=== PATIENT | male | born 1960 | race Caucasian/White ===

== ENCOUNTER 2025-02-01 13:46 | Emergency (ER) | payer BC, SELFPAY ==
[2025-02-01 13:47] VITALS: BP 172/110
[2025-02-01 14:13] LABS: Hematocrit 47.7 % (39.0-52.0); Hemoglobin 15.8 g/dL (13.0-18.0); Mean Corp Hgb Conc. 33.1 g/dL (33.0-37.0); Mean Corpuscular Volume 89.7 fL (80.0-94.0); Nucleated Red Blood Cells % 0 % (-); Platelet Count 277 10^3/uL (130-400); Red Cell Dist. Width 13.3 % (11.5-14.5)
[2025-02-01 14:38] LABS: Troponin I < 0.012 ng/ml
[2025-02-01 14:44] LABS: ALT (SGPT) 19 U/L (0-50); AST (SGOT) 20 U/L (17-59); Albumin 4.8 g/dl (3.5-5.0); Alkaline Phosphatase 57 U/L (38-126); Blood Urea Nitrogen 11 mg/dl (9-20); Calcium 9.8 mg/dl (8.4-10.2); Carbon Dioxide 28 mmol/L (22-30); Chloride 105 mmol/L (98-107); Glucose 113 mg/dl (70-99); Potassium 5.1 mmol/L (3.5-5.1); Sodium 140 mmol/L (135-145); Total Protein 7.6 g/dl (6.3-8.2); eGFR > 60.00
--- NOTE | 2025-02-01 15:51 | ED.GENMED ---
History of Present Illness
General
Chief Complaint: Dizziness
Source: patient
Exam Limitations: none
Time Seen by Provider: 02/01/25 15:20
Nursing documentation reviewed up to this point in time: agreed with
History of Present Illness
History of Present Illness:
Patient is a 64-year-old male presents to the ER for evaluation. Patient reports for the past 4 weeks he has felt very tired and not himself but yesterday he felt lightheaded and took his blood pressure and it was elevated 150/100. He went to
urgent care today for evaluation was sent to the ER. He denies any associated trauma headache blurry vision. He denies any room spinning vertigo history. He does describe at times he has felt' that my brain seems to go numb and I feel very
tired.' Symptoms are intermittent and seem to resolve after he gets a lot of sleep.
While at urgent care he was noted to have PVCs on his EKG which is one of the reasons they sent him to the ER. He denies any chest pain denies any shortness of breath no prior medical history however he has no family doctor.
Patient reports he had similar symptoms and was seen here in May 2023 and symptoms were attributed to orthostasis
He does not smoke. He has no cardiac history.
Phy Exam
General Physical Exam
General Presentation: no apparent distress
General age: appears stated age
General Skin: warm and dry
General Habitus: normal
General Mental: alert
General Hydration: appears well hydrated
Cardiovascular Exam
Cardiovascular Exam: regular rate/rhythm, no murmur and normal peripheral pulses
Pulmonary Exam
Pulmonary Exam: lungs clear and no respiratory distress
Gastrointestinal Exam
Gastrointestinal Exam: non tender and soft
Neurological Exam
Neurological Exam: alert and oriented x3
Musculoskeletal Exam
Musculoskeletal Exam: full ROM
Skin Exam
Skin Exam: normal color and warm/dry
Psychiatric Exam
Psychiatric Exam: normal mood/affect
Course
Orders/Labs/Results
Orders:
Orders
02/01/25 13:48
Electrocardiogram (*1) Urgent
Reason for Study: Chest Pain
EKG- Treatment ONCE
02/01/25 14:03
CBC/With Diff [Complete Blood Count/With Diff] Urgent
Comprehensive Metabolic Panel Urgent
TSH Reflex To Free T4 Urgent
Comment: ADDON
Troponin I Urgent
02/01/25 16:05
Orthostatic VS- Treatment ONCE
02/01/25 16:52
0.9% Sodium Chloride 1000 ml [Nss] 1,000 ml IV BOLUS
02/01/25 18:38
Add On- LAB Urgent
Tests Added?: tsh with reflexive t4
Abnormal Lab Results
02/01/25
14:03
MPV 11.0 H fL
(7.4-10.4)
Absolute Neuts (auto) 6.9 H 10^3/uL
(1.4-6.5)
Absolute Lymphs (auto) 0.6 L 10^3/uL
(1.2-3.4)
Neutrophils % 84.6 H %
(42.2-75.2)
Lymphocytes % 7.7 L %
(20.5-51.1)
Glucose 113 H mg/dl
(70-99)
02/01/25 14:03
02/01/25 14:03
Vital Signs
Initial and Last Documented VS:
Initial Vital Signs
Temp Pulse Resp BP Pulse Ox
97.7 F 102 20 172/110 99
02/01/25 13:47 02/01/25 13:47 02/01/25 13:47 02/01/25 13:47 02/01/25 13:47
Last Documented Vital Signs
Temp Pulse Resp BP Pulse Ox
97.7 F 86 16 132/83 98
02/01/25 13:47 02/01/25 18:30 02/01/25 17:38 02/01/25 18:03 02/01/25 18:30
MDM/Problems Addressed
Differential Diagnosis Includes:
Not limited to orthostasis dehydration electrolyte abnormality
MDM/Problems Addressed:
As documented patient is a 62-year-old male who felt lightheaded yesterday slightly today and went to urgent care. He was sent to the ER for evaluation. It was noted the patient had questionable PVCs. Patient presents awake alert no acute
distress complained of feeling intermittent lightheaded yesterday and today. He has nontoxic well-appearing initially hypertensive when he came to the ER however pressure has improved. Labs unremarkable.
ED no acute findings normal sinus rhythm with occasional PVCs.
Patient is very well-appearing with a very anxious .
I did hydrate patient here in the ER however no orthostatic changes.
He is stable for discharge home with outpatient follow-up. Will DC with family practice clinic if he does not have a primary care provider and also recommend cardiology for further evaluation of lightheadedness and PVCs
*Pulse Oximetry
SaO2: 99
Oxygen Mode of Delivery: Room air
Patient hypoxic: no
*EKG
Interpreted by ED Provider?: Yes
Heart Rate: 97
Rate: normal
Rhythm: sinus and PVC's
*Critical Care Note
Total Time (30-74mins, 75-104mins- exclusive of procedures): Not Applicable
ED Attending Note
-
Portions of this chart may have been created with voice recognition software.� Occasional wrong word or��sound alike� substitutions may have occurred due to the inherent limitations of voice recognition software.
Discharge Plan
Departure
Patient Disposition: Home (Routine Discharge)
Date of Disposition: 02/01/25
Time of Disposition: 18:57
Patient with high blood pressure during this ER visit?: Yes
Condition: Fair
Covid-19: Not Applicable
Discharge Problem:
Lightheadedness, PVC (premature ventricular contraction)
Instructions: Ventricular premature beats, Dizziness in adults - ED (DC), BLOOD PRESSURE
Referrals:
[facility] [Outside]
Devon Chan MD [Active, Cardiology]
NONE,* [Family Provider, Internal Medicine]
Activity Restrictions/Additional Instructions:
As discussed stay well-hydrated. Please follow up with cardiology for further evaluation of lightheadedness and PVCs. It is likely immediate Holter monitor. Please call tomorrow to make an appointment soon as possible. In addition please
follow-up with family practice clinic for primary care provider
Return if any worsening of symptoms
Interventions
Interventions:
*Risk Screen - Suicide Last Done: 02/01/25 13:47
*General Assessment Last Done: 02/01/25 13:47
*Neglect/Abuse Screening Last Done: 02/01/25 17:52
*ED- Fall Risk Assessment Last Done: 02/01/25 17:52
ED- Cardiac Assessment Last Done: 02/01/25 17:52
ED- Neurological Assessment Last Done: 02/01/25 17:52
ED Swallowing Screen Last Done: 02/01/25 17:52
Discharge Date and Time
Print Language: [place]
[2025-02-01 17:04] VITALS: BP 138/86; BP 156/92; BP 162/100; PULSE 111; PULSE 93; PULSE 96
[2025-02-01] MEDS: NSS 1000 IV (17:42)
[2025-02-01 18:03] VITALS: BP 132/83
== END 2025-02-01 19:02 | disposition home or self-care (01) ==
LOC: EMR 13:46
PROVIDERS: EMERGENCY PHYSICIAN Emergency Medicine
DX: R42 Dizziness and giddiness (principal); I49.3 Ventricular premature depolarization
CPT/HCPCS: 99284; 96360; 80053; 84443; 84484; 85025; 93005